=== PATIENT | female | born 1985 | race African-American/Black ===

== ENCOUNTER 2021-05-02 16:46 | Emergency (ER) | payer MEDICAID ==
[~2021-05-02] VITALS: Ht 160 cm; Wt 78.0 kg
[2021-05-02] MEDS ORDERED: BACITRACIN ZINC OINT UDPKT TOP ONE (17:30)
[2021-05-02] MEDS ORDERED: LIDOCAINE HCL/EPINEPHRINE 1%-EPI 1:100,000 20 ML VIAL INFIL ONE (17:30)
[2021-05-02 19:13] VITALS: BP 128/86
== END 2021-05-02 19:15 | disposition home or self-care (01) ==
LOC: ER 16:46
DX: S01.411A Laceration without foreign body of right cheek and temporomandibular area, initial encounter (principal); Z98.51 Tubal ligation status; Z98.890 Other specified postprocedural states; Z88.5 Allergy status to narcotic agent; W25.XXXA Contact with sharp glass, initial encounter; Y93.89 Activity, other specified; Y92.018 Other place in single-family (private) house as the place of occurrence of the external cause
CPT/HCPCS: 99282

== ENCOUNTER 2022-05-24 09:51 | Emergency (ER) | payer OTHER ==
[~2022-05-24] VITALS: Ht 160 cm; Wt 81.0 kg
[2022-05-24] MEDS ORDERED: IBUPROFEN 400MG TABLET PO ONE (10:30)
[2022-05-24 10:37] LABS: BASOPHILS % 0.1 % (0.0-2.0); HEMATOCRIT. 38.4 % (36.0-48.0); HEMOGLOBIN. 12.8 g/dL (12.0-16.0); LYMPHOCYTES % 16.8 % (20.0-50.0); MEAN CORPUSCULAR HEMOGLOBIN 29.8 pg (28.0-32.0); MEAN CORPUSCULAR VOLUME 89.3 fL (81.0-99.0); MEAN PLATELET VOLUME 7.8 fl (7.4-10.4); MONOCYTES % 7.2 % (2.0-8.0); NEUTROPHILS % 74.9 % (40.0-76.0); PLATELET 215 x1000/uL (130-400); RED CELL DISTRIBUTION WIDTH 13.1 % (11.6-14.6)
[2022-05-24 10:46] LABS: CHLORIDE 108 mEq/L (98-107)
[2022-05-24 10:53] LABS: HCG SCREEN NEGATIVE
[2022-05-24 11:25] VITALS: BP 115/64
== END 2022-05-24 12:30 | disposition home or self-care (01) ==
LOC: ER 09:51
DX: R07.89 Other chest pain (principal); R42 Dizziness and giddiness; Z88.5 Allergy status to narcotic agent
CPT/HCPCS: 36415; 71045; 80053; 84484; 84703; 85025; 93005; 99285